=== PATIENT | female | born 1995 | race Caucasian/White ===

== ENCOUNTER 2018-10-06 19:02 | Emergency (ER) | payer MEDICAID, MEDICARE ==
[2018-10-06 19:57] VITALS: BP 140/82
--- NOTE | 2018-10-06 20:59 | ED ---
Throat Pain/Nasal Congestion - HPI Summary HPI Summary: bleeding from left eye and left nose beginning after sneezing - History of Current Complaint Chief Complaint: UCGeneralIllness Time Seen by Provider: 10/06/18 20:54 Hx Obtained From: Patient Onset/Duration: Sudden Onset Severity: Moderate Associated Signs And Symptoms: Positive: Dysphagia, Nasal Discharge Cough: None - Allergies/Home Medications Allergies/Adverse Reactions: Allergies Allergy/AdvReac Type Severity Reaction Status Date / Time No Known Allergies Allergy Verified 10/06/18 19:49 Home Medications: Home Medications NK [No Home Medications Reported] 10/06/18 [History Confirmed 10/06/18] PMH/Surg Hx/FS Hx/Imm Hx Previously Healthy: Yes Endocrine/Hematology History: Denies: Hx Diabetes Cardiovascular History: Denies: Hx Hypertension, Hx Pacemaker/ICD Sensory History: Denies: Hx Hearing Aid Psychiatric History: Denies: Hx Panic Disorder - Surgical History Surgery Procedure, Year, and Place: EAR TUBES A CHILD. GALLBLADDER Infectious Disease History: No Infectious Disease History: Denies: Traveled Outside the [place] in Last 30 Days - Social History Alcohol Use: Occasionally Substance Use Type: Reports: None Smoking Status (MU): Never Smoked Tobacco Review of Systems Constitutional: Negative Eyes: Other - bloody tears left eye, without visual changes Positive: Epistaxis - left nostril primarily Respiratory: Negative Gastrointestinal: Negative All Other Systems Reviewed And Are Negative: Yes Physical Exam Triage Information Reviewed: Yes Vital Signs On Initial Exam: Initial Vitals Temp Pulse Resp BP Pulse Ox 36.3 C 104 16 140/82 100 10/06/18 19:50 10/06/18 19:50 10/06/18 19:50 10/06/18 19:50 10/06/18 19:50 Vital Signs Reviewed: Yes Appearance: Positive: Well-Appearing Skin: Positive: Warm Head/Face: Positive: Normal Head/Face Inspection Eyes: Positive: Normal, Conjunctiva Clear, Other: - no masses, no obvious signs of bloody tears ENT: Positive: Nasal congestion Neck: Positive: Supple Respiratory/Lung Sounds: Positive: Clear to Auscultation Cardiovascular: Positive: Normal Diagnostics - Vital Signs Vital Signs Temp Pulse Resp BP Pulse Ox 10/06/18 19:50 36.3 C 104 16 140/82 100 - Laboratory Lab Statement: Any lab studies that have been ordered have been reviewed, and results considered in the medical decision making process. EENT Course/Dx - Diagnoses Provider Diagnoses: Epistaxis not due to trauma Is Visit Related: No Discharge - Sign-Out/Discharge Documenting (check all that apply): Patient Departure All imaging exams completed and their final reports reviewed: Yes - Discharge Plan Condition: Fair Disposition: HOME Patient Education Materials: Nosebleed (ED) Referrals: Buffy Lay [Primary Care Provider] - - Billing Disposition and Condition Condition: FAIR Disposition: Home
[2018-10-06] MEDS ORDERED: Acetaminophen ADULT LIQ* 650 MG/20.3 ML UDC PO ONE (21:01)
== END 2018-10-06 21:18 | disposition home or self-care (01) ==
LOC: UCCORT 19:02
DX: R04.0 Epistaxis (principal); H11.32 Conjunctival hemorrhage, left eye; R13.10 Dysphagia, unspecified; R09.89 Other specified symptoms and signs involving the circulatory and respiratory systems
CPT/HCPCS: 30901; 99202; A9270-GY; G0463